=== PATIENT | male | born 1985 | race Hispanic/Latino ===

== ENCOUNTER 2019-07-10 12:49 | Emergency (ER) | payer OTHER ==
[2019-07-10] MEDS ORDERED: LIDOCAINE/PRILOCAINE CREAM 5GM TUBE TP ONE (13:06)
== END 2019-07-10 13:35 | disposition home or self-care (01) ==
LOC: EDH 12:49
DX: S81.811A Laceration without foreign body, right lower leg, initial encounter (principal); W26.8XXA Contact with other sharp object(s), not elsewhere classified, initial encounter; Y93.89 Activity, other specified; Y92.89 Other specified places as the place of occurrence of the external cause; Y99.8 Other external cause status
CPT/HCPCS: 12032; 73590; 99284; J3490

== ENCOUNTER 2024-09-11 19:40 | Emergency (ER) | payer OTHER, BC ==
[~2024-09-11] VITALS: Ht 182.9 cm; Wt 156.9 kg
--- NOTE | 2024-09-11 19:48 | NUR ---
UA COLLECTED AND SENT
--- NOTE | 2024-09-11 19:49 | NUR ---
UA CUP PROVIDED
[2024-09-11] MEDS ORDERED: CLINDAMYCIN IVPB 600MG/50ML 50 ML IV SCH (19:55)
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
[2024-09-11] MEDS ORDERED: 0.9%NACL 1000ML 1,000 ML IV SCH (20:00)
[2024-09-11 20:37] LABS: BASOPHILS # (AUTO) 0.07 K/uL (0.00-0.20); BASOPHILS % (AUTO) 0.5 % (0.0-5.0); EOSINOPHILS # (AUTO) 0.14 K/uL (0.00-0.70); HEMATOCRIT 40.5 % (42-54); IMMATURE GRANULOCYTE ABSOLUTE 0.05 K/uL (0-1); LYMPHOCYTES # (AUTO) 3.3 K/uL (1.0-4.8); LYMPHOCYTES % (AUTO) 22.9 % (21.0-51.0); MEAN CORPUSCULAR HEMOGLOBIN 31.8 pg (27.0-33.0); MEAN CORPUSCULAR HGB CONC 34.1 g/dL (32.0-36.0); MEAN CORPUSCULAR VOLUME 93.3 fL (79-99); MONOCYTES % (AUTO) 6.8 % (3.0-13.0); NEUTROPHILS # (AUTO) 9.7 K/uL (1.8-7.7); NEUTROPHILS % (AUTO) 68.4 % (40.0-77.0); PLATELET COUNT (AUTO) 450 K/uL (130-400); RED BLOOD CELL COUNT(AUTO) 4.34 MIL/uL (4.50-6.20); RED CELL DISTRIBUTION WIDTH 12.2 % (11.0-15.5); WHITE BLOOD COUNT (AUTO) 14.2 K/uL (4.8-10.8)
[2024-09-11 20:56] LABS: CREATININE 0.7 mg/dL (0.5-1.3); POTASSIUM 3.7 mmol/L (3.5-5.1)
--- NOTE | 2024-09-11 21:00 | NUR ---
PT CARE ASSUMED AT THIS TIME
[2024-09-11] MEDS: CLINDAMYCIN 150 MG CAP PO STA (21:08)
[2024-09-11] MEDS ORDERED: CLIN-141 PO (21:09)
[2024-09-11] MEDS ORDERED: IBUP-2077 PO (21:09)
[2024-09-11 21:31] VITALS: BP 177/96; PULSE 78; RESP 16; TEMP 99.2; O2SAT 100
== END 2024-09-11 21:32 | disposition home or self-care (01) ==
LOC: EDH 19:40
DX: A46 Erysipelas (principal); E11.65 Type 2 diabetes mellitus with hyperglycemia; E66.9 Obesity, unspecified; G47.30 Sleep apnea, unspecified
CPT/HCPCS: 36415; 80048; 83605; 85025; 87040; 99283

== ENCOUNTER 2024-09-14 13:47 | Inpatient (IN) | payer OTHER, BC ==
[~2024-09-14] VITALS: Ht 190.5 cm; Wt 156.5 kg
[~2024-09-14 13:47] MED LIST: CLIN-141 PO; IBUP-2077 PO
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
[2024-09-14 14:13] LABS: BASOPHILS # (AUTO) 0.05 K/uL (0.00-0.20); BASOPHILS % (AUTO) 0.2 % (0.0-5.0); EOSINOPHILS # (AUTO) 0.08 K/uL (0.00-0.70); EOSINOPHILS % (AUTO) 0.4 % (0.0-8.0); HEMATOCRIT 37.9 % (42-54); IMMATURE GRANULOCYTE ABSOLUTE 0.13 K/uL (0-1); LYMPHOCYTES % (AUTO) 9.8 % (21.0-51.0); MEAN CORPUSCULAR HEMOGLOBIN 31.9 pg (27.0-33.0); MEAN CORPUSCULAR VOLUME 93.8 fL (79-99); MONOCYTES # (AUTO) 1.2 K/uL (0.1-1.0); NEUTROPHILS # (AUTO) 17.2 K/uL (1.8-7.7); PLATELET COUNT (AUTO) 495 K/uL (130-400); RED BLOOD CELL COUNT(AUTO) 4.04 MIL/uL (4.50-6.20); RED CELL DISTRIBUTION WIDTH 12.3 % (11.0-15.5); WHITE BLOOD COUNT (AUTO) 20.8 K/uL (4.8-10.8)
[2024-09-14 14:16] LABS: CREATININE 0.8 mg/dL (0.5-1.3); POTASSIUM 3.8 mmol/L (3.5-5.1)
--- NOTE | 2024-09-14 15:34 | NUR ---
PT MOVED FROM [facility] INTO [facility]. ASSUMED CARE AT THIS TIME
[2024-09-14] MEDS: cefTRIAXone 2GM VIAL IVPB ONE (16:11)
--- NOTE | 2024-09-14 16:49 | HP ---
[facility] HISTORY AND PHYSICAL Date of Service: Sep 14, 2024 Time of Service: 16:49 HISTORY OF PRESENT ILLNESS: [This is a 39-year-old male with past medical history of diabetes mellitus, recent ER visit on 09/11/2024 due to bilateral lower extremity redness. Ap parently this patient works from [place], [place] and lives in [place]. 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 He received cephalexin 500 mg q.i.d. from his Dr. From the [place] in [place], but he decided to come back home for further evaluation for which he was actually in the emergency department while he received medication clindamycin. Today patient presented to the emergency department with the same complaint as bilateral lower extremity has not improved. In the emergency department, his initial temperature was 99.7, pulse 102 -120, respiratory rate 20, blood pressure 165/114, 98% on room air pulse [place]ximetry. [place] [id number] [place] ED visit [id number]. Left shift has been noted. His sodium level is 133, chloride 98, random glucose 3, his hemoglobin A1c is 8%. His lactic acid is 2.2. Patient was treated with sepsis protocol in the emergency department and received IV ceftriaxone2 g. He was referred to the hospitalist for further evaluation and management.] REVIEW OF SYSTEMS CONSTITUTIONAL: Denies fevers, chills, or night sweats. No unintentional weight loss reported. NEUROLOGICAL: Denies headache, amaurosis fugax, motor weakness, sensory deficit, vertigo/spinning sensation, gait abnormalities, or tremors. ENT: No hearing loss, otalgia, otorrhea, rhinitis, rhinorrhea, hoarseness, or sore throat. CARDIOVASCULAR: Denies any exertional angina, dyspnea on exertion, orthopnea, paroxysmal nocturnal dyspnea, palpitations, life-threatening arrhythmias, claudication. PULMONARY: Denies any shortness of breath, cough, phlegm/sputum, hemoptysis, pleuritic chest pain. SLEEP: Denies morning headaches, daytime somnolence or napping. Denies difficulty falling asleep, staying asleep, waking from sleep. Denies knowledge of snoring. GASTROINTESTINAL: Denies any type of dysphagia to either liquids or solids. Denies nausea, vomiting, pyrosis, early satiety, abdominal pain, diarrhea, constipation, or changes in stool consistency or caliber. Denies coffee-ground emesis, hematemesis, hematochezia, or melanotic stools. GENITOURINARY: Denies frequency, urgency, nocturia, hematuria or incontinence (Storage/Irritative symptoms.) Low urinary stream, straining to void, urinary intermittency or hesitancy, splitting of the voiding stream, terminal dribbling. ENDOCRINOLOGIC: Denies polyuria, polydipsia, polyphagia or heat/cold intolerances. HEMATOLOGIC: Denies thrombophilia/previous clots, or coagulopathy/bleeding disorders. ONCOLOGIC: Denies personal history of malignancy. DERMATOLOGIC: Denies rashes or pruritus. PSYCHIATRIC: Denies any suicidal or homicidal ideation. Denies hallucinations. PAST MEDICAL HISTORY: [Diabetes mellitus type 2, morbid obesity with BMI of 43.2 kg/M2, sleep apnea with the use of CPAP ] PAST SURGICAL HISTORY: [Denies any surgical history ] PAST SOCIAL HISTORY: [Lives in [facility] and works in [employer] ] FAMILY HISTORY: [ Noncontributory ] Coded Allergies: No Known Drug Allergies (Unverified Allergy, Unknown, 07/10/19) PHYSICAL EXAM GENERAL APPEARANCE: The patient is awake, alert, and oriented, in no acute cardiopulmonary distress. NEUROLOGICAL: Cranial nerves II-XII grossly intact. Motor is 5/5 in bilateral upper and lower extremities proximal to distal. No sensory deficits. HEENT: Face is symmetric. Pupils are equal and reactive. Extraocular movements are intact. NECK: Supple. No JVD. No thyromegaly. No submental, submandibular, pre- /postauricular, occipital or supraclavicular lymphadenopathy. CHEST: Normal chest expansion. No Telemetry. LUNGS: Absence of any rales, rhonchi or any wheezing. CARDIOVASCULAR: Regular. S1 and S2 normal. No appreciable rubs, murmurs or gallops. ABDOMEN: Soft, nontender, and nondistended. There is no rebound, voluntary guarding, or rigidity. : Deferred. No Oliver. EXTREMITIES: Non-edematous and not cyanotic. No clubbing. Good capillary refill. SKIN: No skin breakdown. Vital Sign (Last 24 Hours) 09/14/24 14:05 Temp 99.7 Pulse 120 Resp 20 B/P (MAP) 144/82 Pulse Ox 96 O2 Delivery Room Air O2 Flow Rate 0 LABS: Laboratory: Test 09/14/24 14:02 Range/Units White Blood Count 20.8 H 4.8-10.8 K/uL Red Blood Count 4.04 L 4.50-6.20 MIL/uL Hemoglobin 12.9 L 14.0-18.0 g/dL Hematocrit 37.9 L 42-54 % Mean Corpuscular Volume 93.8 79-99 fL Mean Corpuscular Hemoglobin 31.9 27.0-33.0 pg Mean Corpuscular Hemoglobin Concent 34.0 32.0-36.0 g/dL Red Cell Distribution Width 12.3 11.0-15.5 % Platelet Count 495 H 130-400 K/uL Mean Platelet Volume 9.7 7.5-10.5 fL Immature Granulocyte % (Auto) 0.6 0-1 % Neutrophils (%) (Auto) 83.0 H 40.0-77.0 % Lymphocytes (%) (Auto) 9.8 L 21.0-51.0 % Monocytes (%) (Auto) 6.0 3.0-13.0 % Eosinophils (%) (Auto) 0.4 0.0-8.0 % Basophils (%) (Auto) 0.2 0.0-5.0 % Neutrophils # (Auto) 17.2 H 1.8-7.7 K/uL Lymphocytes # (Auto) 2.0 1.0-4.8 K/uL Monocytes # (Auto) 1.2 H 0.1-1.0 K/uL Eosinophils # (Auto) 0.08 0.00-0.70 K/uL Basophils # (Auto) 0.05 0.00-0.20 K/uL Absolute Immature Granulocyte (auto 0.13 0-1 K/uL Nucleated Red Blood Cells 0.0 0.0-0.19 % White Cell Morphology Comment See comments Sodium Level 133 L 136-145 mmol/L Potassium Level 3.8 3.5-5.1 mmol/L Chloride Level 98 L 101-111 mmol/L Carbon Dioxide Level 27 21-32 mmol/L Blood Urea Nitrogen 12 7-18 mg/dL Creatinine 0.8 0.5-1.3 mg/dL Glomerular Filtration Rate Calc 116 >90 mL/min Random Glucose 317 H 70-105 mg/dL Lactic Acid Level 2.2 0.8-2.5 mmol/L Total Calcium 8.9 8.5-10.1 mg/dL DIAGNOSTICS / RADIOLOGY: [ ] ASSESSMENT: [Bilateral lower extremity cellulitis, POA Failed outpatient antibiotic therapy, POA Uncontrolled diabetes mellitus with A1c of 8% Morbid obesity with BMI 43.2 kg/M2 Hyponatremia, POA ] PLAN: [Admit to medical floor Continue with sepsis protocol Continue with IV fluids Patient will be started with IV antibiotic with Zosyn and vancomycin per renal protocol Continue with pain management Blood sugar management with a.c. and HS glucometer and insulin sliding scale Prn medication for pain/fever, nausea, vomiting GI and DVT prophylaxis Repeat labs tomorrow We will request dietary for lifestyle modification, weight loss management Patient is a full code Case discussed with Dr. Montaño, above plan was formulated ADVANCED CARE PLANNING 1. Which of the following were discussed? Hospice Care - Yes / No Therapeutic options - Yes / No Advance Directives - Yes / No Other discussions - 2. Discussed with who? Patient 3. Voluntary nature of this service was explained to the patient? Yes / No 4. Amount of time spent - __21 mins 5. Reviewed by Physician? (if this service was performed by NPP) Yes / No ] ATTESTATION BY PHYSICIAN I have seen and examined the patient. I reviewed the documentation, medical decision making, and treatment plan as noted by the mid-level provider above. I agree with the findings and plan of care. MOE MONTAÑO MD, [facility] Sep 14, 2024 16:49
--- NOTE | 2024-09-14 16:56 | NUR ---
PT DOES NOT TAKE ANY HOME MEDICATIONS.
[2024-09-14] MEDS ORDERED: DEXTROSE 50%-WATER 50 ML DISP.SYRIN IV PRN (17:00)
[2024-09-14] MEDS ORDERED: GLUCAGON 1MG KIT 1 MG ML IM PRN (17:00)
[2024-09-14] MEDS ORDERED: morPHINE 2 MG SYG IVP PRN (17:30)
[2024-09-14] MEDS ORDERED: ondanSETRON 4MG INJ IVP PRN (17:30)
[2024-09-14] MEDS ORDERED: VANCOMYCIN PROTOCOL PER PHARMACY IV SCH (17:30)
[2024-09-14] MEDS ORDERED: acetaMINOPHEN 325 MG TAB PO PRN (17:30)
--- NOTE | 2024-09-14 18:23 | HMCIMG ---
US VENOUS DOPPLER BILATERAL HISTORY: Leg swelling COMPARISON: None TECHNIQUE: Bilateral lower extremity venous Doppler ultrasound study was performed. FINDINGS: The common femoral, femoral, popliteal, and posterior tibial veins are visualized. Normal flow with augmentation and compressibilities are demonstrated. The greater saphenous veins are also seen and grossly patent. There are bilateral inguinal lymph nodes with the largest on the right measuring 3.7 cm and on the left measuring 3 cm. IMPRESSION: 1. No evidence of deep venous thrombosis is seen. Bilateral inguinal lymph nodes.
[2024-09-14] MEDS: VANCOMYCIN 2GM/500 ML BAG 500 ML IV SCH (19:05)
[2024-09-14] MEDS: INSULIN humuLIN R 100 UNIT/ML 3ML SQ SCH (21:00)
[2024-09-14] MEDS: ZOSYN 3.375GM +NS 50ML IV SCH (22:12)
[2024-09-14 23:50] VITALS: BP 152/79; PULSE 120; RESP 20; TEMP 98.5
[2024-09-15] MEDS: acetaMINOPHEN 325 MG TAB PO PRN (00:15)
[2024-09-15 03:15] LABS: ADD UA MICROSCOPIC YES; APPEARANCE,URINE CLEAR (CLEAR); BILIRUBIN,URINE NEGATIVE (NEGATIVE); COLOR,URINE COLORLESS (YELLOW); GLUCOSE, URINE (UA) NEGATIVE (NEGATIVE); KETONES,URINE 10 mg/dL (NEGATIVE); LEUKOCYTE ESTERASE ,URINE NEGATIVE Leu/uL (NEGATIVE); NITRATE,URINE NEGATIVE (NEGATIVE); OCCULT BLOOD,URINE NEGATIVE (NEGATIVE); PH,URINE 5.5 (5.0-8.0); PROTEIN,URINE NEGATIVE (NEGATIVE); UROBILINOGEN,URINE 0.2 mg/dL (0.2-1.0)
[2024-09-15 03:17] LABS: WBC,URINE 0-1 /HPF (0-1)
[2024-09-15 04:00] VITALS: BP 132/76; PULSE 94; RESP 20; TEMP 98.2
[2024-09-15 04:32] LABS: HEMATOCRIT 34.7 % (42-54); MEAN CORPUSCULAR HEMOGLOBIN 31.8 pg (27.0-33.0); MEAN CORPUSCULAR HGB CONC 32.9 g/dL (32.0-36.0); MEAN CORPUSCULAR VOLUME 96.7 fL (79-99); RED BLOOD CELL COUNT(AUTO) 3.59 MIL/uL (4.50-6.20); RED CELL DISTRIBUTION WIDTH 12.3 % (11.0-15.5); WHITE BLOOD COUNT (AUTO) 18.2 K/uL (4.8-10.8)
[2024-09-15 04:38] LABS: ALBUMIN 2.2 g/dL (3.5-5.0); BILIRUBIN,TOTAL 0.7 mg/dL (0.2-1.0); CREATININE 0.6 mg/dL (0.5-1.3); MAGNESIUM 1.6 mg/dL (1.80-2.40); POTASSIUM 3.6 mmol/L (3.5-5.1); TOTAL PROTEIN, SERUM 7.1 g/dL (6.0-8.3)
[2024-09-15] MEDS: MAGNESIUM 2GM PREMIX 50ML 50 ML IV PRN (05:35)
[2024-09-15] MEDS: VANCOMYCIN 1.5 GM/250 ML BAG 250 ML IV SCH (05:39)
[2024-09-15 08:00] VITALS: BP 137/72; PULSE 91; RESP 19; TEMP 98
[2024-09-15 08:35] VITALS: O2SAT 97
--- NOTE | 2024-09-15 10:56 | NUR ---
DCP:HOME Pt currently lives alone in his home. Pt does not report any insecurities with food, custodial, and/or utilities. Pt does not have DME, home health, or provider services at this time. Pt is able to complete ADLs independently. PCP is Dr[facility] James L[facility] and uses [facility] for any RX needs. At [place] pt will go home and family can assist with transportation. Addendum: 09/15/24 at 1101 by VALERIE HAMMOND SS Amended: Links added.
[2024-09-15 12:00] VITALS: BP 139/87; PULSE 96; RESP 19; TEMP 99.6
--- NOTE | 2024-09-15 12:54 | PN ---
[facility] PROGRESS NOTE Date of Service: Sep 15, 2024 Time of Service: 12:[address] Montaño SUBJECTIVE: [ 09/14 This is a 39-year-old male with past medical history of diabetes mellitus, recent ER visit on 09/11/2024 due to bilateral lower extremity redness. Apparently this patient works from [place], [place] and lives in [place]. 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 He received cephalexin 500 mg q.i.d. from his Dr. From the CT in [place], but he decided to come back home for further evaluation for which he was actually in the emergency department while he received medication clindamycin. Today patient presented to the emergency department with the same complaint as bilateral lower extremity has not improved. In the emergency department, his initial temperature was 99.7, pulse 102 -120, respiratory rate 20, blood pressure 165/114, 98% on room air pulse oximetry[place] [address] [place] recent ED visit [id number]. Left shift has been noted. His sodium level is 133, chloride 98, random glucose 3, his hemoglobin A1c is 8%. His lactic acid is 2.2. Patient was treated with sepsis protocol in the emergency department and received IV ceftriaxone2 g. He was referred to the hospitalist for further evaluation and management. 09/15 patient was seen by nurse practitioner and physician during rounding in room 329. Patient's WBC is trending down today is 18.2. Patient continues to be on vancomycin and Zosyn as per ID. Patient is newly diagnosed with diabetes mellitus type once on discharge we will be placed on metformin. At this moment we do not have real estate professor at the hospital, patient was advised to follow up outpatient with either PCP or real estate professor once discharged. Venous Doppler was negative for DVT. Patient receive 2 g of magnesium for magnesium of 1.6. Patient also received 40 mEq of potassium for potassium 3.6. We will continue to follow up patient in the meantime. A.m. labs ] REVIEW OF SYSTEMS CONSTITUTIONAL: Denies fevers, chills, or night sweats. No unintentional weight loss reported. NEUROLOGICAL: Denies headache, amaurosis fugax, motor weakness, sensory deficit, vertigo/spinning sensation, gait abnormalities, or tremors. ENT: No hearing loss, otalgia, otorrhea, rhinitis, rhinorrhea, hoarseness, or sore throat. CARDIOVASCULAR: Denies any exertional angina, dyspnea on exertion, orthopnea, paroxysmal nocturnal dyspnea, palpitations, life-threatening arrhythmias, claudication. PULMONARY: Denies any shortness of breath, cough, phlegm/sputum, hemoptysis, pleuritic chest pain. SLEEP: Denies morning headaches, daytime somnolence or napping. Denies difficulty falling asleep, staying asleep, waking from sleep. Denies knowledge of snoring. GASTROINTESTINAL: Denies any type of dysphagia to either liquids or solids. Denies nausea, vomiting, pyrosis, early satiety, abdominal pain, diarrhea, constipation, or changes in stool consistency or caliber. Denies coffee-ground emesis, hematemesis, hematochezia, or melanotic stools. GENITOURINARY: Denies frequency, urgency, nocturia, hematuria or incontinence (Storage/Irritative symptoms.) Low urinary stream, straining to void, urinary intermittency or hesitancy, splitting of the voiding stream, terminal dribbling. ENDOCRINOLOGIC: Denies polyuria, polydipsia, polyphagia or heat/cold intolerances. HEMATOLOGIC: Denies thrombophilia/previous clots, or coagulopathy/bleeding disorders. ONCOLOGIC: Denies personal history of malignancy. DERMATOLOGIC: Patient has bilateral lower extremities edema and redness due to cellulitis PSYCHIATRIC: Denies any suicidal or homicidal ideation. Denies hallucinations. PHYSICAL EXAM GENERAL APPEARANCE: The patient is awake, alert, and oriented, in no acute cardiopulmonary distress. NEUROLOGICAL: Cranial nerves II-XII grossly intact. Motor is 5/5 in bilateral upper and lower extremities proximal to distal. No sensory deficits. HEENT: Face is symmetric. Pupils are equal and reactive. Extraocular movements are intact. NECK: Supple. No JVD. No thyromegaly. No submental, submandibular, pre- /postauricular, occipital or supraclavicular lymphadenopathy. CHEST: Normal chest expansion. No Telemetry. LUNGS: Absence of any rales, rhonchi or any wheezing. CARDIOVASCULAR: Regular. S1 and S2 normal. No appreciable rubs, murmurs or gallops. ABDOMEN: Soft, nontender, and nondistended. There is no rebound, voluntary guarding, or rigidity. : Deferred. No Oliver. EXTREMITIES: and not cyanotic. No clubbing. Good capillary refill. Bilateral lower extremities edema plus two due to cellulitis SKIN: No skin breakdown. Vital Signs (last 8hr) Date Time Temp Pulse Resp B/P (MAP) Pulse Ox O2 Delivery O2 Flow Rate FiO2 09/15/24 12:00 99.7 96 19 139/87 99 Room Air 21 09/15/24 08:35 97 Room Air* 0 21 09/15/24 08:00 98.1 91 19 137/72 97 Room Air 21 LABS: Laboratory: Test 09/15/24 10:57 09/15/24 04:05 09/15/24 03:06 09/14/24 17:30 Range/Units Whole Blood Glucose 148 H 70-110 MG/DL White Blood Count 18.2 H 4.8-10.8 K/uL Red Blood Count 3.59 L 4.50-6.20 MIL/uL Hemoglobin 11.4 L 14.0-18.0 g/dL Hematocrit 34.7 L 42-54 % Mean Corpuscular Volume 96.7 79-99 fL Mean Corpuscular Hemoglobin 31.8 27.0-33.0 pg Mean Corpuscular Hemoglobin Concent 32.9 32.0-36.0 g/dL Red Cell Distribution Width 12.3 11.0-15.5 % Platelet Count 464 H 130-400 K/uL Mean Platelet Volume 9.7 7.5-10.5 fL Nucleated Red Blood Cells 0.0 0.0-0.19 % Sodium Level 134 L 136-145 mmol/L Potassium Level 3.6 3.5-5.1 mmol/L Chloride Level 100 L 101-111 mmol/L Carbon Dioxide Level 25 21-32 mmol/L Blood Urea Nitrogen 4 L 7-18 mg/dL Creatinine 0.6 0.5-1.3 mg/dL Glomerular Filtration Rate Calc 127 >90 mL/min Random Glucose 158 #H 70-105 mg/dL Total Calcium 8.4 L 8.5-10.1 mg/dL Magnesium Level 1.60 L 1.80-2.40 mg/dL Total Bilirubin 0.7 0.2-1.0 mg/dL Aspartate Amino Transf (AST/SGOT) 15 10-37 U/L Alanine Aminotransferase (ALT/SGPT) 19 12-78 U/L Alkaline Phosphatase 82 50-136 U/L Total Protein 7.1 6.0-8.3 g/dL Albumin 2.2 L 3.5-5.0 g/dL Urine Color COLORLESS YELLOW Urine Appearance CLEAR CLEAR Urine pH 5.5 5.0-8.0 Urine Specific [place] 1.006 1.001-1.031 Urine Protein NEGATIVE NEGATIVE mg/dL Urine Glucose (UA) NEGATIVE NEGATIVE mg/dL Urine Ketones 10 H NEGATIVE mg/dL Urine Occult Blood NEGATIVE NEGATIVE Urine Nitrate NEGATIVE NEGATIVE Urine Bilirubin NEGATIVE NEGATIVE mg/dL Urine Urobilinogen 0.2 0.2-1.0 mg/dL Urine Leukocyte Esterase NEGATIVE NEGATIVE Isac/uL Urine RBC None 0-1 /HPF Urine WBC 0-1 0-1 /HPF Urine Bacteria None None Seen /HPF Lactic Acid Level 2.6 H 0.8-2.5 mmol/L Test 09/14/24 14:02 Range/Units Immature Granulocyte % (Auto) 0.6 0-1 % Neutrophils (%) (Auto) 83.0 H 40.0-77.0 % Lymphocytes (%) (Auto) 9.8 L 21.0-51.0 % Monocytes (%) (Auto) 6.0 3.0-13.0 % Eosinophils (%) (Auto) 0.4 0.0-8.0 % Basophils (%) (Auto) 0.2 0.0-5.0 % Neutrophils # (Auto) 17.2 H 1.8-7.7 K/uL Lymphocytes # (Auto) 2.0 1.0-4.8 K/uL Monocytes # (Auto) 1.2 H 0.1-1.0 K/uL Eosinophils # (Auto) 0.08 0.00-0.70 K/uL Basophils # (Auto) 0.05 0.00-0.20 K/uL Absolute Immature Granulocyte (auto 0.13 0-1 K/uL White Cell Morphology Comment See comments Hemoglobin A1c 8.0 H 4.0-6.0 % Estimated Average Glucose (eAG) 183 H 70-126 mg/dL Current Medications Medications (Trade) Dose Ordered Sig/Daryl Route PRN Reason Start Time Stop Time Status Last Admin Dose Admin Acetaminophen (TYLenol 325MG TAB) 650 mg Q4H PRN PO TEMPERATURE GREATER THAN 101.5 09/14/24 17:30 10/14/24 17:29 Acetaminophen (TYLenol 325MG TAB) 650 mg Q6H PRN PO MILD PAIN (1-3) 09/14/24 17:30 10/14/24 17:29 09/15/24 05:45 650 MG Dextrose (D50w) 50 ml AD PRN IV HYPOGLYCEMIA PROTOCOL 09/14/24 17:00 10/14/24 16:59 Glucagon (Glucagon 1mg Kit) 1 mg AD PRN IM HYPOGLYCEMIA PROTOCOL 09/14/24 17:00 10/14/24 16:59 Insulin Human Regular (humuLIN R 100 UNIT/ML 3ML) INSULIN SLIDING SCAL... ACHS SQ 09/14/24 21:00 10/14/24 20:59 Magnesium Sulfate 50 ml @ 0 mls/hr PROTOCOL PRN IV MAGNESIUM PROTOCOL 09/14/24 17:30 10/14/24 17:29 09/15/24 05:35 25 MLS/HR Morphine Sulfate (morPHINE 2MG SYG) 2 mg Q4H PRN IVP SEVERE PAIN (7-10) 09/14/24 17:30 09/21/24 17:29 Ondansetron HCl (zoFRAN 4MG INJ) 4 mg Q6H PRN IVP NAUSEA/VOMITING 09/14/24 17:30 10/14/24 17:29 Piperacillin Sod/ Tazobactam Sod (Zosyn 3.375gm+NS 50ml) 3.375 gm ZOSY8 IV 09/14/24 21:00 09/24/24 20:59 09/15/24 04:14 3.375 GM Vancomycin HCl 250 ml @ 125 mls/hr Q8H6 IV 09/15/24 06:00 09/25/24 05:59 09/15/24 05:39 125 MLS/HR Vancomycin HCl 500 ml @ 250 mls/hr ONCE IV 09/14/24 18:30 09/14/24 23:59 DC 09/14/24 19:05 250 MLS/HR Vancomycin HCl (Vancomycin Protocol) 1 each AD IV 09/14/24 17:30 09/28/24 17:29 DIAGNOSTICS / RADIOLOGY: [ ] ASSESSMENT: [Bilateral lower extremity cellulitis, POA Failed outpatient antibiotic therapy, POA New diagnosis of Uncontrolled diabetes mellitus with A1c of 8% POA Morbid obesity with BMI 43.2 kg/M2 Hyponatremia, POA Uncontrolled hypertension POA Leukocytosis POA Multifactorial anemia POA Electrolyte imbalance hypomagnesemia mg 1.6 ] PLAN: [Admit to medical floor Continue with sepsis protocol Continue with IV fluids Zosyn and vancomycin as per ID Continue with pain management Blood sugar management with a.c. and HS glucometer and insulin sliding scale Prn medication for pain/fever, nausea, vomiting GI and DVT prophylaxis Repeat labs tomorrow We will request dietary for lifestyle modification, weight loss management In his Doppler negative for DVT Patient receive 2 g of magnesium Patient will receive 40 mEq of potassium A1c 8.0 patient will not need metformin on discharge [employer] not available at [facility] at this moment. Patient educated to follow up for his new diagnosis of diabetes outpatient with the PCP or real estate professor. A.m. labs ATTESTATION BY PHYSICIAN I have seen and examined the patient. I reviewed the documentation, medical decision making, and treatment plan as noted by the mid-level provider above. I agree with the findings and plan of care. MOE MONTAÑO MD, KATAR[employer]Y[facility] B NEONATAL SURGEON Sep 15, 2024 12:54
[2024-09-15] MEDS: PoTASSium chloRIDE 20MEQ ER 20 MEQ ERTAB PO ONE (12:57)
[2024-09-15] MEDS: ceFEPime HCL 1 GM VIAL IVPB SCH (14:36)
[2024-09-15 16:00] VITALS: BP 134/77; PULSE 90; RESP 19; TEMP 99.6
--- NOTE | 2024-09-15 19:40 | CONS ---
INFECTIOUS DISEASE CONSULTATION DATE OF SERVICE: 09/15/2024. REQUESTING PHYSICIAN: Connie Wasserman NP REASON FOR CONSULTATION: Sepsis and cellulitis. HISTORY OF PRESENT ILLNESS: A 39-year-old male with morbid obesity, diabetes mellitus, obstructive sleep apnea, presented with bilateral leg pain, swelling and redness. The patient also complained of fever. The patient was treated with antibiotics by primary care physician, but due to increasing pain and redness, decided to come to the emergency room. Venous Doppler has been done, is unremarkable. T-max was 99.7. The patient was tachycardic and WBC was 20,000. Lactic acid positive at 2.2. The patient has been started on vancomycin and Zosyn. No trauma. No fall. Denies insect bite. PAST MEDICAL HISTORY: * Diabetes mellitus. * Morbid obesity. * Obstructive sleep apnea. PAST SURGICAL HISTORY: Denies. ALLERGIES: No known drug allergies. CURRENT MEDICATIONS: Include: * Insulin. * Vancomycin. * Zosyn. * Tylenol. * Lovenox. SOCIAL HISTORY: Denied alcohol, tobacco, or illicit drug use. FAMILY HISTORY: Positive for diabetes mellitus. REVIEW OF SYSTEMS: Greater than 10 systems were reviewed, negative except as documented above. PHYSICAL EXAMINATION: GENERAL: Young male, awake. VITAL SIGNS: Temperature 99.7, pulse 90, respiratory rate 19, BP 139/87. EYES: No icterus. Pupils equal and reactive. HENT: No oral thrush seen. Moist oral mucosa. NECK: Supple. No JVD or thyromegaly. LUNGS: Good air entry. No rales, no rhonchi. CARDIOVASCULAR: S1, S2, regular. No murmur heard. ABDOMEN: Obese, soft, nontender. Bowel sound is present. CENTRAL NERVOUS SYSTEM: Awake, alert, oriented x 3. No focal deficit. SKIN: No rashes, no itchiness. LYMPHATIC: There is bilateral inguinal lymphadenopathy. BACK: No deformity, no pressure ulcer. LABORATORY DATA: Sodium 134, potassium 3.6, BUN 41, creatinine 0.6. WBC 18.2, hemoglobin 11.4, platelets 164. RADIOLOGY: Venous Doppler of lower extremities is negative for venous thrombosis. ASSESSMENT: A 39-year-old white male presented with fever, leg swelling and redness. CURRENT PROBLEMS: Include: * Sepsis. * Left lower extremity cellulitis. * Right lower extremity cellulitis. * Obesity. * Hypertension. * Diabetes mellitus. * Obstructive sleep apnea. PLAN: * Discontinue Zosyn. * Start the patient on cefepime * Continue vancomycin. * Keep leg elevated. * Continue DVT prophylaxis. * Continue antidiabetic. * Continue nutritional support. * The patient will be followed up closely. Thank you for allowing me to participate in the care of this patient. TID: [id number] RECEIPT: [id number]
[2024-09-15 20:00] VITALS: BP 139/84; PULSE 93; RESP 17; TEMP 98.4
[2024-09-16] VITALS (7 sets, daily range): BP systolic 128–140; BP diastolic 74–95; PULSE 79–91; RESP 18–20; TEMP 97.9–99; O2SAT 98
[2024-09-16 05:10] LABS: BASOPHILS # (AUTO) 0.03 K/uL (0.00-0.20); BASOPHILS % (AUTO) 0.2 % (0.0-5.0); EOSINOPHILS # (AUTO) 0.15 K/uL (0.00-0.70); EOSINOPHILS % (AUTO) 1.1 % (0.0-8.0); HEMATOCRIT 34.4 % (42-54); LYMPHOCYTES # (AUTO) 3.1 K/uL (1.0-4.8); LYMPHOCYTES % (AUTO) 23.5 % (21.0-51.0); MEAN CORPUSCULAR HEMOGLOBIN 31.7 pg (27.0-33.0); MEAN CORPUSCULAR HGB CONC 32.8 g/dL (32.0-36.0); MEAN CORPUSCULAR VOLUME 96.4 fL (79-99); MONOCYTES # (AUTO) 1.4 K/uL (0.1-1.0); MONOCYTES % (AUTO) 10.2 % (3.0-13.0); NEUTROPHILS # (AUTO) 8.6 K/uL (1.8-7.7); NEUTROPHILS % (AUTO) 64.3 % (40.0-77.0); PLATELET COUNT (AUTO) 476 K/uL (130-400); RED BLOOD CELL COUNT(AUTO) 3.57 MIL/uL (4.50-6.20); RED CELL DISTRIBUTION WIDTH 12.4 % (11.0-15.5); WHITE BLOOD COUNT (AUTO) 13.4 K/uL (4.8-10.8)
[2024-09-16 05:23] LABS: ALBUMIN 2.1 g/dL (3.5-5.0); BILIRUBIN,TOTAL 0.5 mg/dL (0.2-1.0); CREATININE 0.6 mg/dL (0.5-1.3); MAGNESIUM 1.9 mg/dL (1.80-2.40); POTASSIUM 3.6 mmol/L (3.5-5.1); TOTAL PROTEIN, SERUM 7.6 g/dL (6.0-8.3); VANCOMYCIN TROUGH 3.5 UG/ML (10.0-20.0)
--- NOTE | 2024-09-16 12:26 | PN ---
[facility] PROGRESS NOTE Date of Service: Sep 16, 2024 Time of Service: 12:[address] Montaño SUBJECTIVE: [ 09/14 This is a 39-year-old male with past medical history of diabetes mellitus, recent ER visit on 09/11/2024 due to bilateral lower extremity redness. Apparently this patient works from [place], [place] and lives in [place]. 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 He received cephalexin 500 mg q.i.d. from his Dr. [place], but he decided to come back home for further evaluation for which he was actually in the emergency department while he received medication clindamycin. Today patient presented to the emergency department with the same complaint as bilateral lower extremity has not improved. In the emergency department, his initial temperature was 99.7, pulse 102 -120, respiratory rate 20, blood pressure 165/114, 98% on room air pulse oximetry. [place] [address] from recent ED visit 20271. Left shift has been noted. His sodium level is 133, chloride 98, random glucose 3, his hemoglobin A1c is 8%. His lactic acid is 2.2. Patient was treated with sepsis protocol in the emergency department and received IV ceftriaxone2 g. He was referred to the hospitalist for further evaluation and management. 09/15 patient was seen by nurse practitioner and physician during rounding in room 329. Patient's WBC is trending down today is 18.2. Patient continues to be on vancomycin and Zosyn as per ID. Patient is newly diagnosed with diabetes mellitus type once on discharge we will be placed on metformin. At this moment we do not have apparel trimmings sales representative at the hospital, patient was advised to follow up outpatient with either PCP or apparel trimmings sales representative once discharged. Venous Doppler was negative for DVT. Patient receive 2 g of magnesium for magnesium of 1.6. Patient also received 40 mEq of potassium for potassium 3.6. We will continue to follow up patient in the meantime. A.m. labs 09/16 patient was seen by nurse practitioner and physician during rounding in room 329. Patient was seen by ID and at this moment we will continue vancomycin and cefepime. WBC 13.4. Patient received 40 mEq of potassium for potassium of 3.6. We will continue to monitor patient in the meantime. A.m. labs.] REVIEW OF SYSTEMS CONSTITUTIONAL: Denies fevers, chills, or night sweats. No unintentional weight loss reported. NEUROLOGICAL: Denies headache, amaurosis fugax, motor weakness, sensory deficit, vertigo/spinning sensation, gait abnormalities, or tremors. ENT: No hearing loss, otalgia, otorrhea, rhinitis, rhinorrhea, hoarseness, or sore throat. CARDIOVASCULAR: Denies any exertional angina, dyspnea on exertion, orthopnea, paroxysmal nocturnal dyspnea, palpitations, life-threatening arrhythmias, claudication. PULMONARY: Denies any shortness of breath, cough, phlegm/sputum, hemoptysis, pleuritic chest pain. SLEEP: Denies morning headaches, daytime somnolence or napping. Denies difficulty falling asleep, staying asleep, waking from sleep. Denies knowledge of snoring. GASTROINTESTINAL: Denies any type of dysphagia to either liquids or solids. Denies nausea, vomiting, pyrosis, early satiety, abdominal pain, diarrhea, constipation, or changes in stool consistency or caliber. Denies coffee-ground emesis, hematemesis, hematochezia, or melanotic stools. GENITOURINARY: Denies frequency, urgency, nocturia, hematuria or incontinence (Storage/Irritative symptoms.) Low urinary stream, straining to void, urinary intermittency or hesitancy, splitting of the voiding stream, terminal dribbling. ENDOCRINOLOGIC: Denies polyuria, polydipsia, polyphagia or heat/cold intolerances. HEMATOLOGIC: Denies thrombophilia/previous clots, or coagulopathy/bleeding disorders. ONCOLOGIC: Denies personal history of malignancy. DERMATOLOGIC: Patient has bilateral lower extremities edema and redness due to cellulitis PSYCHIATRIC: Denies any suicidal or homicidal ideation. Denies hallucinations. PHYSICAL EXAM GENERAL APPEARANCE: The patient is awake, alert, and oriented, in no acute cardiopulmonary distress. NEUROLOGICAL: Cranial nerves II-XII grossly intact. Motor is 5/5 in bilateral upper and lower extremities proximal to distal. No sensory deficits. HEENT: Face is symmetric. Pupils are equal and reactive. Extraocular movements are intact. NECK: Supple. No JVD. No thyromegaly. No submental, submandibular, pre- /postauricular, occipital or supraclavicular lymphadenopathy. CHEST: Normal chest expansion. No Telemetry. LUNGS: Absence of any rales, rhonchi or any wheezing. CARDIOVASCULAR: Regular. S1 and S2 normal. No appreciable rubs, murmurs or gallops. ABDOMEN: Soft, nontender, and nondistended. There is no rebound, voluntary guarding, or rigidity. : Deferred. No Oliver. EXTREMITIES: and not cyanotic. No clubbing. Good capillary refill. Bilateral lower extremities edema plus two due to cellulitis and redness SKIN: No skin breakdown. Vital Signs (last 8hr) Date Time Temp Pulse Resp B/P (MAP) Pulse Ox O2 Delivery O2 Flow Rate FiO2 09/16/24 08:00 98.2 80 19 140/85 98 Room Air 21 LABS: Laboratory: Test 09/16/24 10:57 09/16/24 05:04 09/15/24 03:06 09/14/24 17:30 Range/Units Whole Blood Glucose 144 H 70-110 MG/DL White Blood Count 13.4 H 4.8-10.8 K/uL Red Blood Count 3.57 L 4.50-6.20 MIL/uL Hemoglobin 11.3 L 14.0-18.0 g/dL Hematocrit 34.4 L 42-54 % Mean Corpuscular Volume 96.4 79-99 fL Mean Corpuscular Hemoglobin 31.7 27.0-33.0 pg Mean Corpuscular Hemoglobin Concent 32.8 32.0-36.0 g/dL Red Cell Distribution Width 12.4 11.0-15.5 % Platelet Count 476 H 130-400 K/uL Mean Platelet Volume 9.0 7.5-10.5 fL Immature Granulocyte % (Auto) 0.7 0-1 % Neutrophils (%) (Auto) 64.3 40.0-77.0 % Lymphocytes (%) (Auto) 23.5 21.0-51.0 % Monocytes (%) (Auto) 10.2 3.0-13.0 % Eosinophils (%) (Auto) 1.1 0.0-8.0 % Basophils (%) (Auto) 0.2 0.0-5.0 % Neutrophils # (Auto) 8.6 H 1.8-7.7 K/uL Lymphocytes # (Auto) 3.1 1.0-4.8 K/uL Monocytes # (Auto) 1.4 H 0.1-1.0 K/uL Eosinophils # (Auto) 0.15 0.00-0.70 K/uL Basophils # (Auto) 0.03 0.00-0.20 K/uL Absolute Immature Granulocyte (auto 0.10 0-1 K/uL Nucleated Red Blood Cells 0.0 0.0-0.19 % Sodium Level 137 136-145 mmol/L Potassium Level 3.6 3.5-5.1 mmol/L Chloride Level 100 L 101-111 mmol/L Carbon Dioxide Level 30 21-32 mmol/L Blood Urea Nitrogen 6 L 7-18 mg/dL Creatinine 0.6 0.5-1.3 mg/dL Glomerular Filtration Rate Calc 127 >90 mL/min Random Glucose 157 H 70-105 mg/dL Total Calcium 8.4 L 8.5-10.1 mg/dL Magnesium Level 1.90 1.80-2.40 mg/dL Total Bilirubin 0.5 0.2-1.0 mg/dL Aspartate Amino Transf (AST/SGOT) 14 10-37 U/L Alanine Aminotransferase (ALT/SGPT) 22 12-78 U/L Alkaline Phosphatase 85 50-136 U/L Total Protein 7.6 6.0-8.3 g/dL Albumin 2.1 L 3.5-5.0 g/dL Vancomycin Level Trough 3.5 L 10.0-20.0 UG/ML Urine Color COLORLESS YELLOW Urine Appearance CLEAR CLEAR Urine pH 5.5 5.0-8.0 Urine Specific [place] 1.006 1.001-1.031 Urine Protein NEGATIVE NEGATIVE mg/dL Urine Glucose (UA) NEGATIVE NEGATIVE mg/dL Urine Ketones 10 H NEGATIVE mg/dL Urine Occult Blood NEGATIVE NEGATIVE Urine Nitrate NEGATIVE NEGATIVE Urine Bilirubin NEGATIVE NEGATIVE mg/dL Urine Urobilinogen 0.2 0.2-1.0 mg/dL Urine Leukocyte Esterase NEGATIVE NEGATIVE Isac/uL Urine RBC None 0-1 /HPF Urine WBC 0-1 0-1 /HPF Urine Bacteria None None Seen /HPF Lactic Acid Level 2.6 H 0.8-2.5 mmol/L Test 09/14/24 14:02 Range/Units White Cell Morphology Comment See comments Hemoglobin A1c 8.0 H 4.0-6.0 % Estimated Average Glucose (eAG) 183 H 70-126 mg/dL Current Medications Medications (Trade) Dose Ordered Sig/Daryl Route PRN Reason Start Time Stop Time Status Last Admin Dose Admin Acetaminophen (TYLenol 325MG TAB) 650 mg Q4H PRN PO TEMPERATURE GREATER THAN 101.5 09/14/24 17:30 10/14/24 17:29 Acetaminophen (TYLenol 325MG TAB) 650 mg Q6H PRN PO MILD PAIN (1-3) 09/14/24 17:30 10/14/24 17:29 09/16/24 00:05 650 MG Cefepime HCl (MAXipime 1 GM vial) 1 gm Q8H IVPB 09/15/24 13:00 09/25/24 12:59 09/16/24 05:13 1 GM Dextrose (D50w) 50 ml AD PRN IV HYPOGLYCEMIA PROTOCOL 09/14/24 17:00 10/14/24 16:59 Glucagon (Glucagon 1mg Kit) 1 mg AD PRN IM HYPOGLYCEMIA PROTOCOL 09/14/24 17:00 10/14/24 16:59 Insulin Human Regular (humuLIN R 100 UNIT/ML 3ML) INSULIN SLIDING SCAL... ACHS SQ 09/14/24 21:00 10/14/24 20:59 Magnesium Sulfate 50 ml @ 0 mls/hr PROTOCOL PRN IV MAGNESIUM PROTOCOL 09/14/24 17:30 10/14/24 17:29 09/15/24 05:35 25 MLS/HR Morphine Sulfate (morPHINE 2MG SYG) 2 mg Q4H PRN IVP SEVERE PAIN (7-10) 09/14/24 17:30 09/21/24 17:29 Ondansetron HCl (zoFRAN 4MG INJ) 4 mg Q6H PRN IVP NAUSEA/VOMITING 09/14/24 17:30 10/14/24 17:29 Piperacillin Sod/ Tazobactam Sod (Zosyn 3.375gm+NS 50ml) 3.375 gm ZOSY8 IV 09/14/24 21:00 09/15/24 12:56 DC 09/15/24 04:14 3.375 GM Vancomycin HCl 250 ml @ 125 mls/hr Q8H6 IV 09/15/24 06:00 09/25/24 05:59 09/16/24 05:14 125 MLS/HR Vancomycin HCl 500 ml @ 250 mls/hr ONCE IV 09/14/24 18:30 09/14/24 23:59 DC 09/14/24 19:05 250 MLS/HR Vancomycin HCl (Vancomycin Protocol) 1 each AD IV 09/14/24 17:30 09/28/24 17:29 DIAGNOSTICS / RADIOLOGY: [ ] ASSESSMENT: [Bilateral lower extremity cellulitis, POA Failed outpatient antibiotic therapy, POA New diagnosis of Uncontrolled diabetes mellitus with A1c of 8% POA Morbid obesity with BMI 43.2 kg/M2 Hyponatremia, POA Uncontrolled hypertension POA Leukocytosis POA Multifactorial anemia POA Electrolyte imbalance hypomagnesemia mg 1.6 ] PLAN: [Admit to medical floor Continue with sepsis protocol Continue with IV fluids As per ID discontinue Zosyn start cefepime and continue vanco Continue with pain management Blood sugar management with a.c. and HS glucometer and insulin sliding scale Prn medication for pain/fever, nausea, vomiting GI and DVT prophylaxis Repeat labs tomorrow We will request dietary for lifestyle modification, weight loss management In his Doppler negative for DVT Patient receive 2 g of magnesium Patient will receive 40 mEq of potassium A1c 8.0 patient will not need metformin on discharge [employer] not available at [facility] at this moment. Patient educated to follow up for his new diagnosis of diabetes outpatient with the PCP or apparel trimmings sales representative. A.m. labs ATTESTATION BY PHYSICIAN I have seen and examined the patient. I reviewed the documentation, medical decision making, and treatment plan as noted by the mid-level provider above. I agree with the findings and plan of care. MOE MONTAÑO MD, [facility] [employer] Sep 16, 2024 12:26
[2024-09-16] MEDS: VANCOMYCIN 1G/250ML KIT 250 ML IV SCH (14:48)
[2024-09-16] MEDS: PoTASSium chloRIDE 20MEQ ER 20 MEQ ERTAB PO ONE ×2 (14:58→14:59)
--- NOTE | 2024-09-16 16:22 | NUR ---
Nutrition consult per nutrition education Reviewed labs, notes, and medications. Pt with recent ER visit 09/11/24, new dx of T2DM, on 75 gm cho, IV abx, BG 144(H), A1C 8 per chart review. 100%PO intake, wt via standing scale, last BM 09/15/24, no edema, well nourished, no wounds, 50 ml balance 09/15/24 per nursing. Pt reported he goes to the [facility] for care, no [facility] QD. RD reviewed MNT for T2DM, labs Pt receptive during visit. No lipid panel or vit. D available. Pt with PCM per BMI of 46.3 Recommendations: -Provide 75 gm cho + HH diet -Monitor PO intake -Monitor BM -If no BM >3 days consider stool softener -Monitor electrolytes -Replenish electrolytes per protocol -Monitor wts -Reweigh as able -Order Vit D, vit b-12 labs to rule out deficiencies -Order lipid panel -Recommend Pt to follow up with PCP -Monitor goals of care RD to follow + available for consult per protocol Addendum: 09/16/24 at [address] Amended: Links added.
--- NOTE | 2024-09-16 17:09 | PN ---
INFECTIOUS DISEASE PROGRESS NOTE Date of Service: Sep 16, 2024 SUBJECTIVE: Patient was seen and examined at bedside in room 329. Patient with bilateral lower extremities cellulitis and edema which is improving. The WBC has trended down to 13.4 today from 18.2 yesterday. The last low-grade fever reported was yesterday evening. No fever this morning, temperature is 98.2. We will continue on cefepime and vancomycin. Discharge planning for tomorrow if stable. PHYSICAL EXAM EYES: Anicteric. Pupils equal and reactive. HENT: No oral thrush seen, moist Oral mucosa NECK: Supple, no JVD or thyromegaly. LUNGS: Good air entry. No rales, no rhonchi. CARDIOVASCULAR: S1, S2 regular. No murmur heard. ABDOMEN: Soft, non tender, bowel sounds present, no organomegaly CENTRAL NERVOUS SYSTEM: Awake, alert, oriented x 3. SKIN: No rashes, no swelling. LYMPHATICS: No peripheral lymphadenopathy MUSCULOSKELETAL: No joint swelling, erythema or tenderness. EXTREMITIES: No cyanosis or clubbing. Bilateral lower extremity cellulitis. BACK: No deformity, no pressure ulcer. GENITOURINARY: No dysuria or hematuria. Vital Sign (Last 12 Hours) 09/16/24 09/16/24 09/16/24 09/16/24 08:00 08:00 12:00 16:00 Temp 98.2 98.8 99.0 Pulse 80 82 91 Resp 19 18 18 B/P (MAP) 140/85 139/86 135/80 Pulse Ox 98 98 96 94 O2 Delivery Room Air Room Air* Room Air Room Air O2 Flow Rate 0 FiO2 21 21 21 21 Intake & Output (last 24hrs) 09/15/24 09/15/24 09/16/24 15:00 23:00 07:00 Intake Total 2100.0 ml Balance 2100.0 ml LABS: Laboratory: Test 09/16/24 15:34 09/16/24 12:24 09/16/24 05:04 09/15/24 03:06 Range/Units Whole Blood Glucose 119 H 70-110 MG/DL Vancomycin Level Trough 4.9 #L 10.0-20.0 UG/ML White Blood Count 13.4 H 4.8-10.8 K/uL Red Blood Count 3.57 L 4.50-6.20 MIL/uL Hemoglobin 11.3 L 14.0-18.0 g/dL Hematocrit 34.4 L 42-54 % Mean Corpuscular Volume 96.4 79-99 fL Mean Corpuscular Hemoglobin 31.7 27.0-33.0 pg Mean Corpuscular Hemoglobin Concent 32.8 32.0-36.0 g/dL Red Cell Distribution Width 12.4 11.0-15.5 % Platelet Count 476 H 130-400 K/uL Mean Platelet Volume 9.0 7.5-10.5 fL Immature Granulocyte % (Auto) 0.7 0-1 % Neutrophils (%) (Auto) 64.3 40.0-77.0 % Lymphocytes (%) (Auto) 23.5 21.0-51.0 % Monocytes (%) (Auto) 10.2 3.0-13.0 % Eosinophils (%) (Auto) 1.1 0.0-8.0 % Basophils (%) (Auto) 0.2 0.0-5.0 % Neutrophils # (Auto) 8.6 H 1.8-7.7 K/uL Lymphocytes # (Auto) 3.1 1.0-4.8 K/uL Monocytes # (Auto) 1.4 H 0.1-1.0 K/uL Eosinophils # (Auto) 0.15 0.00-0.70 K/uL Basophils # (Auto) 0.03 0.00-0.20 K/uL Absolute Immature Granulocyte (auto 0.10 0-1 K/uL Nucleated Red Blood Cells 0.0 0.0-0.19 % Sodium Level 137 136-145 mmol/L Potassium Level 3.6 3.5-5.1 mmol/L Chloride Level 100 L 101-111 mmol/L Carbon Dioxide Level 30 21-32 mmol/L Blood Urea Nitrogen 6 L 7-18 mg/dL Creatinine 0.6 0.5-1.3 mg/dL Glomerular Filtration Rate Calc 127 >90 mL/min Random Glucose 157 H 70-105 mg/dL Total Calcium 8.4 L 8.5-10.1 mg/dL Magnesium Level 1.90 1.80-2.40 mg/dL Total Bilirubin 0.5 0.2-1.0 mg/dL Aspartate Amino Transf (AST/SGOT) 14 10-37 U/L Alanine Aminotransferase (ALT/SGPT) 22 12-78 U/L Alkaline Phosphatase 85 50-136 U/L Total Protein 7.6 6.0-8.3 g/dL Albumin 2.1 L 3.5-5.0 g/dL Urine Color COLORLESS YELLOW Urine Appearance CLEAR CLEAR Urine pH 5.5 5.0-8.0 Urine Specific [place] 1.006 1.001-1.031 Urine Protein NEGATIVE NEGATIVE mg/dL Urine Glucose (UA) NEGATIVE NEGATIVE mg/dL Urine Ketones 10 H NEGATIVE mg/dL Urine Occult Blood NEGATIVE NEGATIVE Urine Nitrate NEGATIVE NEGATIVE Urine Bilirubin NEGATIVE NEGATIVE mg/dL Urine Urobilinogen 0.2 0.2-1.0 mg/dL Urine Leukocyte Esterase NEGATIVE NEGATIVE Isac/uL Urine RBC None 0-1 /HPF Urine WBC 0-1 0-1 /HPF Urine Bacteria None None Seen /HPF Test 09/14/24 17:30 Range/Units Lactic Acid Level 2.6 H 0.8-2.5 mmol/L ASSESSMENT: Bilateral lower extremity cellulitis. Sepsis. Morbid obesity. Diabetes mellitus. Hypertension. PLAN: Continue cefepime. Continue vancomycin. Continue pain management. Continue antidiabetics. Discharge planning for tomorrow if stable. This case was reviewed and discussed with my supervising physician and the above assessment and plan was formulated and agreed upon. ATTESTATION BY PHYSICIAN I have seen and examined the patient. I reviewed the documentation, medical decision making, and treatment plan as noted by the mid-level provider above. I agree with the findings and plan of care. LUCIAN MENDOZA MD, [facility] Sep 16, 2024 17:09
[2024-09-17] VITALS (9 sets, daily range): BP systolic 130–169; BP diastolic 73–96; PULSE 81–90; RESP 18–19; TEMP 97.7–98.5; O2SAT 95–99
[2024-09-17 05:17] LABS: BASOPHILS # (AUTO) 0.06 K/uL (0.00-0.20); BASOPHILS % (AUTO) 0.5 % (0.0-5.0); EOSINOPHILS # (AUTO) 0.19 K/uL (0.00-0.70); EOSINOPHILS % (AUTO) 1.5 % (0.0-8.0); HEMATOCRIT 36.1 % (42-54); IMMATURE GRANULOCYTE ABSOLUTE 0.11 K/uL (0-1); LYMPHOCYTES # (AUTO) 3.2 K/uL (1.0-4.8); LYMPHOCYTES % (AUTO) 25.9 % (21.0-51.0); MEAN CORPUSCULAR HEMOGLOBIN 31.4 pg (27.0-33.0); MEAN CORPUSCULAR HGB CONC 33.8 g/dL (32.0-36.0); MEAN CORPUSCULAR VOLUME 92.8 fL (79-99); MONOCYTES # (AUTO) 1.2 K/uL (0.1-1.0); MONOCYTES % (AUTO) 9.9 % (3.0-13.0); NEUTROPHILS # (AUTO) 7.5 K/uL (1.8-7.7); NEUTROPHILS % (AUTO) 61.3 % (40.0-77.0); PLATELET COUNT (AUTO) 580 K/uL (130-400); RED BLOOD CELL COUNT(AUTO) 3.89 MIL/uL (4.50-6.20); RED CELL DISTRIBUTION WIDTH 12.3 % (11.0-15.5); WHITE BLOOD COUNT (AUTO) 12.3 K/uL (4.8-10.8)
[2024-09-17 05:38] LABS: ALBUMIN 2.5 g/dL (3.5-5.0); BILIRUBIN,TOTAL 0.4 mg/dL (0.2-1.0); CREATININE 0.6 mg/dL (0.5-1.3); MAGNESIUM 1.8 mg/dL (1.80-2.40); POTASSIUM 3.4 mmol/L (3.5-5.1); TOTAL PROTEIN, SERUM 8.4 g/dL (6.0-8.3)
[2024-09-17] MEDS: PoTASSium chloRIDE 20MEQ ER 20 MEQ ERTAB PO ONE (11:06)
--- NOTE | 2024-09-17 12:39 | PN ---
[facility] PROGRESS NOTE Date of Service: Sep 17, 2024 Time of Service: 12:[address] Montaño SUBJECTIVE: [ 09/14 This is a 39-year-old male with past medical history of diabetes mellitus, recent ER visit on 09/11/2024 due to bilateral lower extremity redness . Apparently this patient works from [place], [place] and lives in [place]. 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 He received cephalexin 500 mg q.i.d. from his Dr. From the [facility] in [place], but he decided to come back home for further evaluation for which he was actually in the emergency department while he received medication clindamycin. Today patient presented to the emergency department with the same complaint as bilateral lower extremity has not improved. In the emergency department, his initial temperature was 99.7, pulse 102 -120, respiratory rate 20, blood pressure 165/114, 98% on room air pulse [place]ximetry. [place] [id number] [place] ED visit [id number]. Left shift has been noted. His sodium level is 133, chloride 98, random glucose 3, his hemoglobin A1c is 8%. His lactic acid is 2.2. Patient was treated with sepsis protocol in the emergency department and received IV ceftriaxone2 g. He was referred to the hospitalist for further evaluation and management. 09/15 patient was seen by nurse practitioner and physician during rounding in room 329. Patient's WBC is trending down today is 18.2. Patient continues to be on vancomycin and Zosyn as per ID. Patient is newly diagnosed with diabetes mellitus type once on discharge we will be placed on metformin. At this moment we do not have certified respiratory therapist at the hospital, patient was advised to follow up outpatient with either PCP or certified respiratory therapist once discharged. Venous Doppler was negative for DVT. Patient receive 2 g of magnesium for magnesium of 1.6. Patient also received 40 mEq of potassium for potassium 3.6. We will continue to follow up patient in the meantime. A.m. labs 09/16 patient was seen by nurse practitioner and physician during rounding in room 329. Patient was seen by ID and at this moment we will continue vancomycin and cefepime. WBC 13.4. Patient received 40 mEq of potassium for potassium of 3.6. We will continue to monitor patient in the meantime. A.m. labs. 09/17 patient was seen by nurse practitioner and physician during rounding. As per ID continue vancomycin and cefepime. Today WBC 12.3. As per ID anticipated discharge within 24 hours. Patient denies any shortness of breath, chest pain, nausea, vomiting or any other discomfort. We will continue to monitor patient in the meantime. A.m. labs.] REVIEW OF SYSTEMS CONSTITUTIONAL: Denies fevers, chills, or night sweats. No unintentional weight loss reported. NEUROLOGICAL: Denies headache, amaurosis fugax, motor weakness, sensory deficit, vertigo/spinning sensation, gait abnormalities, or tremors. ENT: No hearing loss, otalgia, otorrhea, rhinitis, rhinorrhea, hoarseness, or sore throat. CARDIOVASCULAR: Denies any exertional angina, dyspnea on exertion, orthopnea, paroxysmal nocturnal dyspnea, palpitations, life-threatening arrhythmias, claudication. PULMONARY: Denies any shortness of breath, cough, phlegm/sputum, hemoptysis, pleuritic chest pain. SLEEP: Denies morning headaches, daytime somnolence or napping. Denies difficulty falling asleep, staying asleep, waking from sleep. Denies knowledge of snoring. GASTROINTESTINAL: Denies any type of dysphagia to either liquids or solids. Denies nausea, vomiting, pyrosis, early satiety, abdominal pain, diarrhea, constipation, or changes in stool consistency or caliber. Denies coffee-ground emesis, hematemesis, hematochezia, or melanotic stools. GENITOURINARY: Denies frequency, urgency, nocturia, hematuria or incontinence (Storage/Irritative symptoms.) Low urinary stream, straining to void, urinary intermittency or hesitancy, splitting of the voiding stream, terminal dribbling. ENDOCRINOLOGIC: Denies polyuria, polydipsia, polyphagia or heat/cold intolerances. HEMATOLOGIC: Denies thrombophilia/previous clots, or coagulopathy/bleeding disorders. ONCOLOGIC: Denies personal history of malignancy. DERMATOLOGIC: Patient has bilateral lower extremities edema and redness due to cellulitis PSYCHIATRIC: Denies any suicidal or homicidal ideation. Denies hallucinations. PHYSICAL EXAM GENERAL APPEARANCE: The patient is awake, alert, and oriented, in no acute cardiopulmonary distress. NEUROLOGICAL: Cranial nerves II-XII grossly intact. Motor is 5/5 in bilateral upper and lower extremities proximal to distal. No sensory deficits. HEENT: Face is symmetric. Pupils are equal and reactive. Extraocular movements are intact. NECK: Supple. No JVD. No thyromegaly. No submental, submandibular, pre- /postauricular, occipital or supraclavicular lymphadenopathy. CHEST: Normal chest expansion. No Telemetry. LUNGS: Absence of any rales, rhonchi or any wheezing. CARDIOVASCULAR: Regular. S1 and S2 normal. No appreciable rubs, murmurs or g allops. ABDOMEN: Soft, nontender, and nondistended. There is no rebound, voluntary gua rding, or rigidity. : Deferred. No Oliver. EXTREMITIES: and not cyanotic. No clubbing. Good capillary refill. Bilateral lower extremities edema plus two due to cellulitis and redness SKIN: No skin breakdown. Vital Signs (last 8hr) Date Time Temp Pulse Resp B/P (MAP) Pulse Ox O2 Delivery O2 Flow Rate FiO2 09/17/24 08:32 98.4 85 18 166/96 99 LABS: Laboratory: Test 09/17/24 10:57 09/17/24 05:01 09/16/24 12:24 Range/Units Whole Blood Glucose 160 H 70-110 MG/DL White Blood Count 12.3 H 4.8-10.8 K/uL Red Blood Count 3.89 L 4.50-6.20 MIL/uL Hemoglobin 12.2 L 14.0-18.0 g/dL Hematocrit 36.1 L 42-54 % Mean Corpuscular Volume 92.8 79-99 fL Mean Corpuscular Hemoglobin 31.4 27.0-33.0 pg Mean Corpuscular Hemoglobin Concent 33.8 32.0-36.0 g/dL Red Cell Distribution Width 12.3 11.0-15.5 % Platelet Count 580 H 130-400 K/uL Mean Platelet Volume 9.2 7.5-10.5 fL Immature Granulocyte % (Auto) 0.9 0-1 % Neutrophils (%) (Auto) 61.3 40.0-77.0 % Lymphocytes (%) (Auto) 25.9 21.0-51.0 % Monocytes (%) (Auto) 9.9 3.0-13.0 % Eosinophils (%) (Auto) 1.5 0.0-8.0 % Basophils (%) (Auto) 0.5 0.0-5.0 % Neutrophils # (Auto) 7.5 1.8-7.7 K/uL Lymphocytes # (Auto) 3.2 1.0-4.8 K/uL Monocytes # (Auto) 1.2 H 0.1-1.0 K/uL Eosinophils # (Auto) 0.19 0.00-0.70 K/uL Basophils # (Auto) 0.06 0.00-0.20 K/uL Absolute Immature Granulocyte (auto 0.11 0-1 K/uL Nucleated Red Blood Cells 0.0 0.0-0.19 % Sodium Level 135 L 136-145 mmol/L Potassium Level 3.4 L 3.5-5.1 mmol/L Chloride Level 98 L 101-111 mmol/L Carbon Dioxide Level 29 21-32 mmol/L Blood Urea Nitrogen 6 L 7-18 mg/dL Creatinine 0.6 0.5-1.3 mg/dL Glomerular Filtration Rate Calc 127 >90 mL/min Random Glucose 133 H 70-105 mg/dL Total Calcium 9.0 8.5-10.1 mg/dL Magnesium Level 1.80 1.80-2.40 mg/dL Total Bilirubin 0.4 0.2-1.0 mg/dL Aspartate Amino Transf (AST/SGOT) 22 10-37 U/L Alanine Aminotransferase (ALT/SGPT) 26 12-78 U/L Alkaline Phosphatase 98 50-136 U/L Total Protein 8.4 H 6.0-8.3 g/dL Albumin 2.5 L 3.5-5.0 g/dL Vancomycin Level Trough 4.9 #L 10.0-20.0 UG/ML Current Medications Medications (Trade) Dose Ordered Sig/Daryl Route PRN Reason Start Time Stop Time Status Last Admin Dose Admin Acetaminophen (TYLenol 325MG TAB) 650 mg Q4H PRN PO TEMPERATURE GREATER THAN 101.5 09/14/24 17:30 10/14/24 17:29 Acetaminophen (TYLenol 325MG TAB) 650 mg Q6H PRN PO MILD PAIN (1-3) 09/14/24 17:30 10/14/24 17:29 09/17/24 11:05 650 MG Cefepime HCl (MAXipime 1 GM vial) 1 gm Q8H IVPB 09/15/24 13:00 09/25/24 12:59 09/17/24 04:38 1 GM Dextrose (D50w) 50 ml AD PRN IV HYPOGLYCEMIA PROTOCOL 09/14/24 17:00 10/14/24 16:59 Glucagon (Glucagon 1mg Kit) 1 mg AD PRN IM HYPOGLYCEMIA PROTOCOL 09/14/24 17:00 10/14/24 16:59 Insulin Human Regular (humuLIN R 100 UNIT/ML 3ML) INSULIN SLIDING SCAL... ACHS SQ 09/14/24 21:00 10/14/24 20:59 09/16/24 20:24 2 UNIT Magnesium Sulfate 50 ml @ 0 mls/hr PROTOCOL PRN IV MAGNESIUM PROTOCOL 09/14/24 17:30 10/14/24 17:29 09/16/24 17:54 0 MLS/HR Morphine Sulfate (morPHINE 2MG SYG) 2 mg Q4H PRN IVP SEVERE PAIN (7-10) 09/14/24 17:30 09/21/24 17:29 Ondansetron HCl (zoFRAN 4MG INJ) 4 mg Q6H PRN IVP NAUSEA/VOMITING 09/14/24 17:30 10/14/24 17:29 Piperacillin Sod/ Tazobactam Sod (Zosyn 3.375gm+NS 50ml) 3.375 gm ZOSY8 IV 09/14/24 21:00 09/15/24 12:56 DC 09/15/24 04:14 3.375 GM Vancomycin HCl 250 ml @ 125 mls/hr Q6H IV 09/16/24 14:30 09/26/24 14:29 09/17/24 08:20 125 MLS/HR Vancomycin HCl 250 ml @ 125 mls/hr Q8H6 IV 09/15/24 06:00 09/16/24 13:58 DC 09/16/24 05:14 125 MLS/HR Vancomycin HCl 500 ml @ 250 mls/hr ONCE IV 09/14/24 18:30 09/14/24 23:59 DC 09/14/24 19:05 250 MLS/HR Vancomycin HCl (Vancomycin Protocol) 1 each AD IV 09/14/24 17:30 09/28/24 17:29 DIAGNOSTICS / RADIOLOGY: [ ] ASSESSMENT: [Bilateral lower extremity cellulitis, POA Failed outpatient antibiotic therapy, POA New diagnosis of Uncontrolled diabetes mellitus with A1c of 8% POA Morbid obesity with BMI 43.2 kg/M2 Hyponatremia, POA Uncontrolled hypertension POA Leukocytosis POA Multifactorial anemia POA Electrolyte imbalance hypomagnesemia mg 1.6 ] PLAN: [Admit to medical floor Continue with sepsis protocol Continue with IV fluids As per ID continue vanco and cefepime Continue with pain management Blood sugar management with a.c. and HS glucometer and insulin sliding scale Prn medication for pain/fever, nausea, vomiting GI and DVT prophylaxis Repeat labs tomorrow We will request dietary for lifestyle modification, weight loss management In his Doppler negative for DVT Patient receive 2 g of magnesium Patient will receive 40 mEq of potassium A1c 8.0 patient will not need metformin on discharge [employer] not available at [facility] at this moment. Patient educated to follow up for his new diagnosis of diabetes outpatient with the PCP or certified respiratory therapist. A.m. labs ATTESTATION BY PHYSICIAN I have seen and examined the patient. I reviewed the documentation, medical decision making, and treatment plan as noted by the mid-level provider above. I agree with the findings and plan of care. MOE MONTAÑO MD, KATARZYNA B SUPER[employer]ORY [employer] OFFICER Sep 17, 2024 12:39
--- NOTE | 2024-09-17 13:26 | PN ---
INFECTIOUS DISEASE PROGRESS NOTE Date of Service: Sep 17, 2024 SUBJECTIVE: Patient was seen and examined at bedside in room 329. Patient alert and oriented x3. Patient reported experiencing pain mostly to the knees areas. The bilateral lower extremities cellulitis and edema continues to improve. No fever, temperature is 98.4 and the WBC is down to 12.3. We will continue on cefepime and vancomycin for one more day. PHYSICAL EXAM EYES: Anicteric. Pupils equal and reactive. HENT: No oral thrush seen, moist Oral mucosa NECK: Supple, no JVD or thyromegaly. LUNGS: Good air entry. No rales, no rhonchi. CARDIOVASCULAR: S1, S2 regular. No murmur heard. ABDOMEN: Soft, non tender, bowel sounds present, no organomegaly CENTRAL NERVOUS SYSTEM: Awake, alert, oriented x 3. SKIN: No rashes, no swelling. LYMPHATICS: No peripheral lymphadenopathy MUSCULOSKELETAL: No joint swelling, erythema or tenderness. EXTREMITIES: No cyanosis or clubbing. Bilateral lower extremity cellulitis. BACK: No deformity, no pressure ulcer. GENITOURINARY: No dysuria or hematuria. Vital Sign (Last 12 Hours) 09/17/24 09/17/24 09/17/24 03:56 08:00 08:32 Temp 97.7 98.4 Pulse 90 85 Resp 18 18 B/P (MAP) 135/73 166/96 Pulse Ox 97 99 99 O2 Delivery Room Air Room Air* O2 Flow Rate 0 FiO2 21 Intake & Output (last 24hrs) 09/16/24 09/16/24 09/17/24 15:00 23:00 07:00 Intake Total 2000 ml 300.0 ml Balance 2000 ml 300.0 ml LABS: Laboratory: Test 09/17/24 10:57 09/17/24 05:01 09/16/24 12:24 Range/Units Whole Blood Glucose 160 H 70-110 MG/DL White Blood Count 12.3 H 4.8-10.8 K/uL Red Blood Count 3.89 L 4.50-6.20 MIL/uL Hemoglobin 12.2 L 14.0-18.0 g/dL Hematocrit 36.1 L 42-54 % Mean Corpuscular Volume 92.8 79-99 fL Mean Corpuscular Hemoglobin 31.4 27.0-33.0 pg Mean Corpuscular Hemoglobin Concent 33.8 32.0-36.0 g/dL Red Cell Distribution Width 12.3 11.0-15.5 % Platelet Count 580 H 130-400 K/uL Mean Platelet Volume 9.2 7.5-10.5 fL Immature Granulocyte % (Auto) 0.9 0-1 % Neutrophils (%) (Auto) 61.3 40.0-77.0 % Lymphocytes (%) (Auto) 25.9 21.0-51.0 % Monocytes (%) (Auto) 9.9 3.0-13.0 % Eosinophils (%) (Auto) 1.5 0.0-8.0 % Basophils (%) (Auto) 0.5 0.0-5.0 % Neutrophils # (Auto) 7.5 1.8-7.7 K/uL Lymphocytes # (Auto) 3.2 1.0-4.8 K/uL Monocytes # (Auto) 1.2 H 0.1-1.0 K/uL Eosinophils # (Auto) 0.19 0.00-0.70 K/uL Basophils # (Auto) 0.06 0.00-0.20 K/uL Absolute Immature Granulocyte (auto 0.11 0-1 K/uL Nucleated Red Blood Cells 0.0 0.0-0.19 % Sodium Level 135 L 136-145 mmol/L Potassium Level 3.4 L 3.5-5.1 mmol/L Chloride Level 98 L 101-111 mmol/L Carbon Dioxide Level 29 21-32 mmol/L Blood Urea Nitrogen 6 L 7-18 mg/dL Creatinine 0.6 0.5-1.3 mg/dL Glomerular Filtration Rate Calc 127 >90 mL/min Random Glucose 133 H 70-105 mg/dL Total Calcium 9.0 8.5-10.1 mg/dL Magnesium Level 1.80 1.80-2.40 mg/dL Total Bilirubin 0.4 0.2-1.0 mg/dL Aspartate Amino Transf (AST/SGOT) 22 10-37 U/L Alanine Aminotransferase (ALT/SGPT) 26 12-78 U/L Alkaline Phosphatase 98 50-136 U/L Total Protein 8.4 H 6.0-8.3 g/dL Albumin 2.5 L 3.5-5.0 g/dL Vancomycin Level Trough 4.9 #L 10.0-20.0 UG/ML ASSESSMENT: Bilateral lower extremity cellulitis, improving. Sepsis. Morbid obesity. Diabetes mellitus. Hypertension. PLAN: Continue cefepime and vancomycin x1 more day.. Continue pain management. Continue antidiabetics. This case was reviewed and discussed with my supervising physician and the above assessment and plan was formulated and agreed upon. ATTESTATION BY PHYSICIAN I have seen and examined the patient. I reviewed the documentation, medical decision making, and treatment plan as noted by the mid-level provider above. I agree with the findings and plan of care. LUCIAN MENDOZA MD, MIRTA L [facility] Sep 17, 2024 13:26
[2024-09-18 04:32] VITALS: BP 141/88; PULSE 84; RESP 19; TEMP 98.4
[2024-09-18 05:17] LABS: BASOPHILS # (AUTO) 0.05 K/uL (0.00-0.20); BASOPHILS % (AUTO) 0.5 % (0.0-5.0); EOSINOPHILS # (AUTO) 0.17 K/uL (0.00-0.70); EOSINOPHILS % (AUTO) 1.6 % (0.0-8.0); HEMATOCRIT 38.2 % (42-54); IMMATURE GRANULOCYTE ABSOLUTE 0.15 K/uL (0-1); LYMPHOCYTES # (AUTO) 3.2 K/uL (1.0-4.8); MEAN CORPUSCULAR HEMOGLOBIN 31.3 pg (27.0-33.0); MONOCYTES # (AUTO) 1.1 K/uL (0.1-1.0); MONOCYTES % (AUTO) 9.9 % (3.0-13.0); NEUTROPHILS # (AUTO) 6.1 K/uL (1.8-7.7); NEUTROPHILS % (AUTO) 56.6 % (40.0-77.0); PLATELET COUNT (AUTO) 573 K/uL (130-400); RED BLOOD CELL COUNT(AUTO) 4.15 MIL/uL (4.50-6.20); WHITE BLOOD COUNT (AUTO) 10.8 K/uL (4.8-10.8)
[2024-09-18 05:19] LABS: ALBUMIN 2.6 g/dL (3.5-5.0); BILIRUBIN,TOTAL 0.4 mg/dL (0.2-1.0); CREATININE 0.6 mg/dL (0.5-1.3); MAGNESIUM 1.7 mg/dL (1.80-2.40); TOTAL PROTEIN, SERUM 8.7 g/dL (6.0-8.3)
[2024-09-18 07:50] VITALS: O2SAT 98
[2024-09-18 08:01] VITALS: BP 144/81; PULSE 81; RESP 19; TEMP 98.1
[2024-09-18] MEDS ORDERED: MAGNESIUM 2GM PREMIX 50ML 50 ML IV SCH (08:30)
[2024-09-18 12:12] VITALS: BP 161/91; PULSE 77; RESP 16; TEMP 98.7
[2024-09-18] MEDS: amLODIPine 5 MG TAB PO SCH (12:33)
[2024-09-18] MEDS: VANCOMYCIN 1G/250ML KIT 250 ML IV ONE (12:38)
[2024-09-18] MEDS ORDERED: AMLO5TAB4 PO (13:06)
[2024-09-18] MEDS ORDERED: METF-444 PO (13:06)
--- NOTE | 2024-09-18 13:11 | DS ---
Discharge Summary Hospital Course Summary: DATE OF ADMISSION:[09/14/2024] DATE OF DISCHARGE:[09/18/2024] DISPOSITION:[Home] CONDITION:[Medically stable] CONSULTANTS:[ID] FOLLOW UP APPOINTMENTS:[PCP 2 to 3 days] PROCEDURES:[None] IMAGING: report attached to summary MICROBIOLOGY: report attached to summary ACTIVITY:[] Independent HOME MEDICATIONS: see [facility] NEW MEDICATIONS:[Antibiotics per ID recommendations. Nurse practitioner insert new prescription for amlodipine 10 mg p.o. daily and metformin 500 mg p.o. b.i.d.] EMERGENCY INSTRUCTIONS: The patient was instructed to present to the nearest Emergency departmentr or call 911 once their symptoms will return or worsen Algologist(s): Patient is 39 years old male who came to emergency department for the evaluation of bilateral lower extremities cellulitis that has not been improved after taking outpatient antibiotics clindamycin. On admission patient underwent venous Doppler was negative. Patient was seen by infectious disease doctor. As per ID patient was at 1st placed on vancomycin and Zosyn and then was Zosyn was discontinued and patient was placed on cefepime. Blood culture-48 hours. Today patient was cleared by ID to be discharged home on p.o. antibiotics. Magnesium was replaced today with 2 g. Patient is newly diagnosed with the diabetes mellitus type 2. At this moment we do not have l d rn available with the hospital. Patient was advised to follow up outpatient with the PCP in 2 to 3 days and l d rn. We will place patient on metformin 500 mg p.o. b.i.d. for now. Patient was cleared to be discharged home. Procedure(s): REVIEW OF SYSTEMS CONSTITUTIONAL: Denies fevers, chills, or night sweats. No unintentional weight loss reported. NEUROLOGICAL: Denies headache, amaurosis fugax, motor weakness, sensory deficit, vertigo/spinning sensation, gait abnormalities, or tremors. ENT: No hearing loss, otalgia, otorrhea, rhinitis, rhinorrhea, hoarseness, or sore throat. CARDIOVASCULAR: Denies any exertional angina, dyspnea on exertion, orthopnea, paroxysmal nocturnal dyspnea, palpitations, life-threatening arrhythmias, claudication. PULMONARY: Denies any shortness of breath, cough, phlegm/sputum, hemoptysis, pleuritic chest pain. SLEEP: Denies morning headaches, daytime somnolence or napping. Denies difficulty falling asleep, staying asleep, waking from sleep. Denies knowledge of snoring. GASTROINTESTINAL: Denies any type of dysphagia to either liquids or solids. Denies nausea, vomiting, pyrosis, early satiety, abdominal pain, diarrhea, constipation, or changes in stool consistency or caliber. Denies coffee-ground emesis, hematemesis, hematochezia, or melanotic stools. GENITOURINARY: Denies frequency, urgency, nocturia, hematuria or incontinence (Storage/Irritative symptoms.) Low urinary stream, straining to void, urinary intermittency or hesitancy, splitting of the voiding stream, terminal dribbling. ENDOCRINOLOGIC: Denies polyuria, polydipsia, polyphagia or heat/cold intolerances. HEMATOLOGIC: Denies thrombophilia/previous clots, or coagulopathy/bleeding disorders. ONCOLOGIC: Denies personal history of malignancy. DERMATOLOGIC: Patient has bilateral lower extremities edema and redness due to cellulitis PSYCHIATRIC: Denies any suicidal or homicidal ideation. Denies hallucinations. PHYSICAL EXAM GENERAL APPEARANCE: The patient is awake, alert, and oriented, in no acute cardiopulmonary distress. NEUROLOGICAL: Cranial nerves II-XII grossly intact. Motor is 5/5 in bilateral upper and lower extremities proximal to distal. No sensory deficits. HEENT: Face is symmetric. Pupils are equal and reactive. Extraocular movements are intact. NECK: Supple. No JVD. No thyromegaly. No submental, submandibular, pre-/postauricular, occipital or supraclavicular lymphadenopathy. CHEST: Normal chest expansion. No Telemetry. LUNGS: Absence of any rales, rhonchi or any wheezing. CARDIOVASCULAR: Regular. S1 and S2 normal. No appreciable rubs, murmurs or gallops. ABDOMEN: Soft, nontender, and nondistended. There is no rebound, voluntary guarding, or rigidity. : Deferred. No Oliver. EXTREMITIES: and not cyanotic. No clubbing. Good capillary refill. Bilateral lower extremities edema plus two due to cellulitis and redness SKIN: No skin breakdown. Assessment/Plan: ASSESSMENT: [Bilateral lower extremity cellulitis, POA Failed outpatient antibiotic therapy, POA New diagnosis of Uncontrolled diabetes mellitus with A1c of 8% POA Morbid obesity with BMI 43.2 kg/M2 Hyponatremia, POA Uncontrolled hypertension POA Leukocytosis POA Multifactorial anemia POA Electrolyte imbalance hypomagnesemia mg 1.6 ] Time spent arranging discharge: 31-60 minutes ATTESTATION BY PHYSICIAN I have seen and examined the patient. I reviewed the documentation, medical decision making, and treatment plan as noted by the mid-level provider above. I agree with the findings and plan of care. SEAMUS Reynoso MD RESEARCH NEUROPSYCHOLOGIST Sep 18, 2024 13:11
--- NOTE | 2024-09-18 13:55 | PN ---
INFECTIOUS DISEASE PROGRESS NOTE Date of Service: Sep 18, 2024 SUBJECTIVE: Patient was seen and examined at bedside in room 329. Patient alert and oriented x3. Lower extremities cellulitis improved. Patient is afebrile, temperature is 98.1 and the WBC trended down to 10.8. From Infectious Disease standpoint patient can be discharged on cephalexin and doxycycline x 10 days. Prescription was written. PHYSICAL EXAM EYES: Anicteric. Pupils equal and reactive. HENT: No oral thrush seen, moist Oral mucosa NECK: Supple, no JVD or thyromegaly. LUNGS: Good air entry. No rales, no rhonchi. CARDIOVASCULAR: S1, S2 regular. No murmur heard. ABDOMEN: Soft, non tender, bowel sounds present, no organomegaly CENTRAL NERVOUS SYSTEM: Awake, alert, oriented x 3. SKIN: No rashes, no swelling. LYMPHATICS: No peripheral lymphadenopathy MUSCULOSKELETAL: No joint swelling, erythema or tenderness. EXTREMITIES: No cyanosis or clubbing. Bilateral lower extremity cellulitis, improved. BACK: No deformity, no pressure ulcer. GENITOURINARY: No dysuria or hematuria. Vital Sign (Last 12 Hours) 09/18/24 09/18/24 09/18/24 09/18/24 04:32 07:50 08:01 12:12 Temp 98.4 98.1 98.8 Pulse 84 81 77 Resp 19 19 16 B/P (MAP) 141/88 144/81 161/91 Pulse Ox 99 98 98 96 O2 Delivery Room Air Room Air* O2 Flow Rate 0 FiO2 21 Intake & Output (last 24hrs) 09/17/24 09/17/24 09/18/24 15:00 23:00 07:00 Intake Total 50.0 ml 550.0 ml Balance 50.0 ml 550.0 ml LABS: Laboratory: Test 09/18/24 11:12 09/18/24 04:57 09/17/24 13:24 Range/Units Whole Blood Glucose 133 H 70-110 MG/DL White Blood Count 10.8 4.8-10.8 K/uL Red Blood Count 4.15 L 4.50-6.20 MIL/uL Hemoglobin 13.0 L 14.0-18.0 g/dL Hematocrit 38.2 L 42-54 % Mean Corpuscular Volume 92.0 79-99 fL Mean Corpuscular Hemoglobin 31.3 27.0-33.0 pg Mean Corpuscular Hemoglobin Concent 34.0 32.0-36.0 g/dL Red Cell Distribution Width 12.0 11.0-15.5 % Platelet Count 573 H 130-400 K/uL Mean Platelet Volume 9.1 7.5-10.5 fL Immature Granulocyte % (Auto) 1.4 H 0-1 % Neutrophils (%) (Auto) 56.6 40.0-77.0 % Lymphocytes (%) (Auto) 30.0 21.0-51.0 % Monocytes (%) (Auto) 9.9 3.0-13.0 % Eosinophils (%) (Auto) 1.6 0.0-8.0 % Basophils (%) (Auto) 0.5 0.0-5.0 % Neutrophils # (Auto) 6.1 1.8-7.7 K/uL Lymphocytes # (Auto) 3.2 1.0-4.8 K/uL Monocytes # (Auto) 1.1 H 0.1-1.0 K/uL Eosinophils # (Auto) 0.17 0.00-0.70 K/uL Basophils # (Auto) 0.05 0.00-0.20 K/uL Absolute Immature Granulocyte (auto 0.15 0-1 K/uL Nucleated Red Blood Cells 0.0 0.0-0.19 % Sodium Level 135 L 136-145 mmol/L Potassium Level 4.0 3.5-5.1 mmol/L Chloride Level 99 L 101-111 mmol/L Carbon Dioxide Level 29 21-32 mmol/L Blood Urea Nitrogen 8 7-18 mg/dL Creatinine 0.6 0.5-1.3 mg/dL Glomerular Filtration Rate Calc 127 >90 mL/min Random Glucose 138 H 70-105 mg/dL Total Calcium 9.3 8.5-10.1 mg/dL Magnesium Level 1.70 L 1.80-2.40 mg/dL Total Bilirubin 0.4 0.2-1.0 mg/dL Aspartate Amino Transf (AST/SGOT) 27 10-37 U/L Alanine Aminotransferase (ALT/SGPT) 33 # 12-78 U/L Alkaline Phosphatase 92 50-136 U/L Total Protein 8.7 H 6.0-8.3 g/dL Albumin 2.6 L 3.5-5.0 g/dL Vancomycin Level Trough 6.9 #L 10.0-20.0 UG/ML ASSESSMENT: Bilateral lower extremity cellulitis, improving. Sepsis. Morbid obesity. Diabetes mellitus. Hypertension. PLAN: From Infectious Disease standpoint patient can be discharged on cephalexin and doxycycline x 10 days. Prescription was written. This case was reviewed and discussed with my supervising physician and the above assessment and plan was formulated and agreed upon. ATTESTATION BY PHYSICIAN I have seen and examined the patient. I reviewed the documentation, medical decision making, and treatment plan as noted by the mid-level provider above. I agree with the findings and plan of care. LUCIAN MENDOZA MD, MIRTA L [facility] Sep 18, 2024 13:55
--- NOTE | 2024-09-21 10:24 | NUR ---
Transitional Phone Call Spoke to patient, states "feeling a little bit better." States has new prescriptions; no questions or concerns with medications. States will be attending a follow up appointment with PCP - Dr. James Loyd/[facility] in [place]. No questions or concerns at this time.
== END 2024-09-18 16:48 | disposition home or self-care (01) | DRG 872 ==
LOC: EDH 13:47 → EDHIP 16:43 → 3AH 23:40
PROVIDERS: ADMIT Internal Medicine; ATTEND Internal Medicine
PROC: 5A09357 Assistance with Respiratory Ventilation, Less than 24 Consecutive Hours, Continuous Positive Airway Pressure (ICD-10-PCS; principal; 2024-09-15)
PROC: 5A09357 Assistance with Respiratory Ventilation, Less than 24 Consecutive Hours, Continuous Positive Airway Pressure (ICD-10-PCS; 2024-09-16)
DX: A41.9 Sepsis, unspecified organism (principal); L03.115 Cellulitis of right lower limb; E87.1 Hypo-osmolality and hyponatremia; Z68.41 Body mass index [BMI] 40.0-44.9, adult; L03.116 Cellulitis of left lower limb; E11.65 Type 2 diabetes mellitus with hyperglycemia; E66.01 Morbid (severe) obesity due to excess calories; D64.9 Anemia, unspecified; E83.42 Hypomagnesemia; E87.8 Other disorders of electrolyte and fluid balance, not elsewhere classified; I10 Essential (primary) hypertension; G47.33 Obstructive sleep apnea (adult) (pediatric); Z83.3 Family history of diabetes mellitus
CPT/HCPCS: 36415; 80048; 80053; 80202; 81001; 82948; 83036; 83605; 83735; 85025; 85027; 87040; 93970; 96365; 99285; G0378; J0692; J0696; J1815; J2543; J3370; J3475; J7030